=== PATIENT | male | born 1945 | race Caucasian/White ===

== ENCOUNTER → 2017-11-20 | Outpatient (CLI) | payer MEDICARE, OTHER ==
[2016-01-30 13:20] VITALS: BMI 28.2
[~2017-11-20] MED LIST: AMLO-99 PO; ATEN100T93 PO; GEMF600T91 PO; HYDR-2966 PO; IOPAMIDOL 76% 75 ML INFUS BTL 75 ML ONE; LEVO50TA86 PO; LOR5/325 PO; LOSA50TA72 PO; METF-410 PO
[2017-11-20 14:25] LABS: PLATELET COUNT, AUTOMATED 258 K/uL (150-450)
--- NOTE | 2017-11-20 16:02 | RADIOLOGY IMAGING REPORT ---
FACILITY: [facility] - [place] PATIENT NAME: Genna Alaniz : 1945 MR: [id number] V: [id number] EXAM DATE: ORDERING PHYSICIAN: YONNY ALAS TECHNOLOGIST: Location: [facility] - [place] Patient: Genna Alaniz : 1945 Visit/Account:[id number] Date of Sevice: 11/20/2017 ABDOMEN/PELVIS WITH CONTRAST HISTORY: Abdomen pain TECHNIQUE: Following administration of IV contrast contiguous axial images acquired through the abdom en/pelvis. Coronal and sagittal reformatting also performed. Dose Lowering Technique One of the following dose optimization techniques was utilized in the performance of this exam: Autom ated exposure control; adjustment of the mA and/or kV according to the patient's size; or use of an i terative reconstruction technique. Specific details can be referenced in the facility's radiology C T exam operational policy. CONTRAST: 75 mL [id number]-[id number] COMPARISON: August 28, 2015 FINDINGS: Visualized lung bases: Coronary artery calcifications Hepatobiliary: There is a vague area of contrast-enhancement with a tiny hypodense central region in the medial dome of the liver appears similar to the prior study. Spleen: Negative. Adrenals: Mild thickening of the adrenal glands Pancreas: Negative. Kidneys ureters or bladder: Bilateral renal cysts. Mild bladder wall thickening Genitalia: Prostate gland is impinging upon the floor the urinary bladder GI: There is diverticulosis of the left-sided colon although no surrounding inflammatory change seen there are postsurgical changes from a right hemicolectomy There is wall thickening inflammation seen surrounding the duodenal bulb and second and third portion s of the duodenum with adjacent fat stranding. No evidence of free perforation Vessels/spaces/nodes: Moderate vascular calcifications throughout the abdomen and pelvis Bones/soft tissues: No aggressive appearing bone lesions are seen. 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 IMPRESSION: There is wall thickening of the duodenal bulb and second portion of the duodenum, to lesser extent th ird portion the duodenum with inflammatory changes in the surrounding fat. Findings are concerning f or ulcer disease. Continued follow-up however recommended to exclude the remote possibility of a mal ignancy. There is no evidence of perforation. Diverticulosis of the left-sided colon although no surrounding inflammatory change identified Mild bladder wall thickening There is a vague area of contrast enhancement with a tiny hypodense central region in the medial dome of the liver. This appears some are to the prior study. This may simply represent a hemangioma. F urther evaluation however with MR or CT with liver mass protocol recommended. Results were called to YONNY ALAS at 11/20/2017 3:54 PM. Report Dictated By: Marcy Stanley MD at 11/20/2017 3:36 PM Report E-Signed By: Marcy Stanley MD at 11/20/2017 3:57 PM WSN:[id number]
== END ==
LOC: CT 14:02
PROVIDERS: ATTEND Nurse Practitioner Family
DX: K57.30 Diverticulosis of large intestine without perforation or abscess without bleeding (principal); K76.89 Other specified diseases of liver
CPT/HCPCS: 36415; 74177; 82150; 83690; 85025; 85651; Q9967; 82040; 82247; 82310; 82374; 82435; 82565; 82947; 84075; 84132; 84155; 84295; 84450; 84460; 84520